=== PATIENT | male | born 1960 | race Caucasian/White ===

== ENCOUNTER 2024-11-19 06:22 | Day surgery (SDC) | payer BC, SELFPAY | END 2024-11-19 14:51 | disposition home or self-care (01) | LOC: GI 06:22 | PROVIDERS: ATTENDING PHYSICIAN Internal Medicine Gastroenterology | DX: Z12.11 Encounter for screening for malignant neoplasm of colon (principal); D12.2 Benign neoplasm of ascending colon; D12.3 Benign neoplasm of transverse colon; D12.5 Benign neoplasm of sigmoid colon; K57.30 Diverticulosis of large intestine without perforation or abscess without bleeding; K62.1 Rectal polyp; Z86.0101 Personal history of adenomatous and serrated colon polyps | CPT/HCPCS: 45385; 45380; 88305 ==

== ENCOUNTER 2025-02-25 12:29 | Inpatient (IN) | payer BC, SELFPAY ==
[2025-02-25] VITALS (10 sets, daily range): BP systolic 118–189; BP diastolic 68–104; BMI 36.8; BMI 36.0
--- NOTE | 2025-02-25 09:26 | ED.GENMED ---
History of Present Illness
General
Chief Complaint: Dizziness
Source: patient
Exam Limitations: none
Time Seen by Provider: 02/25/25 09:14
Nursing documentation reviewed up to this point in time: agreed with
History of Present Illness
History of Present Illness:
Note:
CHIEF COMPLAINT(S)
Light-headedness, sensation of the heart racing.
HISTORY OF PRESENT ILLNESS
The patient is a 64-year-old male who presents with a complaint of light-headedness and a sensation of his heart racing. The patient noticed these sensations yesterday morning when he felt his heart racing. He has not experienced any similar heart
rhythm issues in the past. Upon examination, the patient was found to be in atrial flutter. He is currently receiving a calcium channel eagle to manage his heart rate. The plan includes monitoring heart rhythm and conducting further diagnostics
such as an echocardiogram to assess heart health and check for potential blood clots due to the inability of the atria to pump effectively. The patient reports no history of heart rhythm problems, denies current chest pain, but describes the
sensation of the heart racing as feeling as though its out of rhythm.
PAST MEDICAL AND SURIGICAL HISTORY
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
CHRONIC MEDICAL CONDITIONS SIGNIFICANTLY AFFECTING CARE
- Hypertension
SOCIAL HISTORY
The patient reports consuming alcohol on weekends. He denies smoking and any illicit drug use.
MEDICATIONS
- Levothyroxine (Synthroid) for hypothyroidism, which has required dose adjustments approximately every three months to manage thyroid levels.
PHYSICAL EXAM
General: Alert, no acute distress.
Skin: Warm, dry.
Head: Normocephalic, atraumatic.
Neck: Supple, trachea midline.
Eye Ears, nose, mouth and throat: Oral mucosa moist.
Cardiovascular: Heart rhythm irregular, tachycardia
Respiratory: Respirations are non-labored.
Gastrointestinal: Abdomen nondistended.
Back: Normal range of motion, normal alignment.
Musculoskeletal: Normal range of motion, normal strength.
Neurological: Alert and oriented to person, place, time, and situation. No focal neurological deficit observed.
Psychiatric: Cooperative, appropriate mood & affect.
PLAN
- Continue monitoring on a calcium channel eagle with an infusion drip to attempt rate control.
- Laboratory tests will be conducted.
- Perform a chest X-ray to assess cardiac and pulmonary structures.
- Conduct an echocardiogram to evaluate cardiac function and rule out blood clots in the atrial appendage.
- Initiate anticoagulant therapy to prevent thromboembolic events.
- Arrange for follow-up with cardiology for long-term management of atrial flutter and potential conversion to sinus rhythm.
- The patient was advised on lifestyle factors including alcohol moderation as a contributory factor for atrial flutter.
DIFFERENTIAL DIAGNOSIS
The Differential Diagnosis includes, in no particular order and is not limited to:
1. Atrial Flutter
2. Atrial Fibrillation
3. Sinus Tachycardia
4. Paroxysmal Supraventricular Tachycardia
5. Ventricular Tachycardia
6. Hyperthyroidism-related Arrhythmia
7. Anxiety or Panic Disorder
8. Electrolyte Imbalance
9. Myocardial Infarction
10. Pulmonary Embolism
EKG
My independent EKG interpretation is:
- Time of EK:51 a.m.
- Rhythm: Atrial flutter with 2:1 AV conduction
- Heart Rate: 129 bpm
- Abnormalities: Non-specific ST abnormality
- QRS Complex: Normal
- Fulton: Left axis deviation
Disposition:
SUMMARY OF ENCOUNTER
The patient, a 64-year-old male, presented to the emergency department with light-headedness and a sensation of the heart racing, which started the previous morning. On examination, the patient was found to be in atrial flutter with a heart rate of
129 bpm and an irregular rhythm. An EKG was performed with findings of atrial flutter with 2:1 AV conduction and non-specific ST abnormality. The patient was started on a diltiazem drip for rate control, which led to mild improvement in blood
pressure, but the heart rate remained largely unchanged. A chest X-ray was conducted, showing no acute findings. Given the complexity and potential risks associated with the patient�s condition and the need for further evaluation, including a
potential echocardiogram and cardioversion, admission was deemed necessary.
DISPOSITION
Admit to hospitalist for further evaluation and management.
ASSESSMENT
New onset of rapid atrial flutter.
MANAGEMENT OF THE PATIENTS CARE WAS DISCUSSED WITH
Message sent to Dr. Pardo, deputy register of deeds, to evaluate the patient for potential echocardiogram and cardioversion.
PLAN
- Admit to hospitalist for further evaluation and management. - Cardiology consultation for likely need for echocardiogram and cardioversion. - Continue monitoring on diltiazem drip and reassess heart rate control.
INDEPENDENT REVIEW OF LABS AND INTERPRETATION OF TESTS
My independent interpretation of the chest X-ray is no acute findings. My independent EKG interpretation is atrial flutter with 2:1 AV conduction, heart rate 129 bpm, and non-specific ST abnormality. The echocardiogram is normal.
MEDICATION RECONCILIATION
Diltiazem drip administered for rate control of atrial flutter.
MEDICAL DECISION MAKING
- Number and Complexity of Problems Addressed: Chronic conditions affecting care include hypertension and hypothyroidism. Differential Diagnosis includes atrial flutter, atrial fibrillation, sinus tachycardia, paroxysmal supraventricular
tachycardia, ventricular tachycardia, hyperthyroidism-related arrhythmia, anxiety or panic disorder, electrolyte imbalance, myocardial infarction, and pulmonary embolism.
- Data:
Category 1: My independent interpretation of the EKG and chest x-ray.
Category 3: Discussion of management with Dr. Pardo, deputy register of deeds, regarding potential echocardiogram and cardioversion.
- Risk: Consideration of Admission/Observation was necessary given the complexity and risk of the patients presenting complaint, exam findings, and underlying comorbidities.
DIAGNOSIS
Atrial flutter, unspecified (ICD-10: I48.92). Hypertension (ICD-10: I10). Hypothyroidism, unspecified (ICD-10: E03.9).
Past History
Past History
ED Past Medical History: HTN, Hypercholesterolemia, Hypothyroidism and Other (Hernia)
ED Past Surgical History: None
Social History
Tobacco: Former smoker
Alcohol: Occasional
Personal:
Living: with family
Phy Exam
Physical Exam
Physical Exam:
.
Course
Orders/Labs/Results
Orders:
Orders
02/25/25 08:49
Electrocardiogram (*1) Urgent
Reason for Study: Tachycardia
EKG- Treatment ONCE
02/25/25 09:32
Adenosine [Adenocard] 6 mg .ROUTE .STK-MED ONE
Diltiazem HCl [Cardizem] 25 mg .ROUTE .STK-MED ONE
02/25/25 09:39
Diltiazem 125 mg/125 ml Nss [Cardizem] 125 mg in 125 ml .ROUTE .STK-MED
02/25/25 09:44
Diltiazem 125 mg/125 ml Nss [Cardizem] 125 mg in 125 ml IV NOW
Initial dose in mg/hr, then titrate:: 10
Titrate to keep:: Heart rate 80-100 bpm
Titrate by mg/hr:: 5 mg/hr
Frequency of titrations (minutes):: 15
Maximum dose in mg/hr:: 15
Diltiazem HCl [Cardizem] 10 mg IV NOW STA
02/25/25 09:47
Complete Blood Count/With Diff Urgent
Comprehensive Metabolic Panel Urgent
Glycohemoglobin (HgbA1c) Urgent
Magnesium Urgent
PTT Urgent
Prothrombin Time Urgent
TSH Reflex To Free T4 Urgent
Comment: ADD
02/25/25 Lunch
Cholesterol Lowering
At Your Request: Full Participation
02/25/25 10:04
CR Chest Portable - 1 View Urgent
Comment:
Reason For Exam: tachycardia, short of breath
Reason Study Needs to be Portable: Patient Unstable
02/25/25 11:03
Heparin 4,000 units IV NOW STA
Pharmacy Request to Place See Dose Instructions PO NOW STA
Discontinue all Active Warfarin orders?: Yes
Nursing to Place Non Medication Order As Directed
Physician Order: PTT 6 hours after initial start of Heparin infusion
Above order entered?: Yes
02/25/25 11:07
Add On- LAB Routine
Tests Added?: TSH reflex to T4, Hgba1c
02/25/25 11:15
Heparin 02030 Units/250 ml 25,000 units in 250 ml IV PER PROTOCOL
Weight to be used for heparin protocol in kilograms (kg):: 130
Protocol:: Cardiac Tx/Acute Coronary
PTT Goal Range to be used:: PTT 73 to 111 seconds
Order type:: Initial
INITIAL Infusion Dose (UNITS/KG/hr) & then follow protocol:: 12 units/kg/hr
Infusion Dose in UNITS/hr & then follow protocol (UNITS/hr):: 1,000
INFUSION RATE in mL/hr & then follow protocol (mL/hr):: 10
PTT less than or equal to 64 seconds:: Increase rate by 200 units/hr (+ 2 mL/hr)
PTT 64.1 to 72.9 seconds:: Increase rate by 100 units/hr (+ 1 mL/hr)
PTT 73 to 111 seconds:: Target Range. No change in rate.
PTT 111.1 to 130.9 seconds:: Decrease rate by 100 units/hr (- 1 mL/hr)
PTT 131 to 199.9 seconds:: HOLD for 1 hr. Then decrease rate by 200 units/hr (- 2 mL/hr)
PTT greater than or equal to 200 seconds:: HOLD for 2 hrs & Notify Provider. Then decrease by 200 units/hr (-
2 mL/hr)
Lab follow-up:: Each change, PTT q6h until 2 consecutive are therapeutic. Then PTT
daily.
02/25/25 12:[address] See Dose Instructions IV DIRECTED
02/25/25 12:10
Admit/Transfer Patient As Directed
Co-Sign Provider:
Level of Care: Inpatient admission
Assign to:: Telemetry
Physician / Group: Chantal
Diagnosis: Rapid Atrial flutter
Reason for Telemetry: Arrhythmia
Date to Stop Telemetry: 02/28/25
Time to Stop Telemetry: 11:00
Reason for Hospitalization: Rate control, cardio consult
Expected length of stay greater than two midnights?: Yes
ELOS- Estimated Length of Stay in days: 3
I certify the patient meets the requirements for IP care: Yes
PRN Pain Medication Management As Directed
May give lesser potent ordered pain med per pt: Yes
preference::
Protocol:: Medication orders for pain may be administered in a
manner that supports deferring to patient preference
when the pt is:
- Requesting an ordered lesser potent pain medication.
Least to most potent pain medications are defined
as: acetaminophen < NSAID < tramadol < opioids
(morphine, oxycodone, hydromorphone).
- Requesting a lesser dose of the same medication IF
ORDERED.
- Requesting a less intrusive route of administration
if both routes are prescribed by the provider (PO <
IV).
02/25/25 12:12
Code Status As Directed
Resuscitation Status: Full Code
02/25/25 12:23
Echo 2D MMode Color/Doppler [Echo 2D MMode Color/Doppler] Routine
Reason for Study: atrial flutter
CARDIOLOGY CONSULT Routine
Consulting Provider: Mello Gu
Was physician already notified: Yes
02/25/25 15:34
Acetaminophen [Tylenol] 650 mg PO Q6HPRN PRN
02/25/25 15:34
Activity As Directed
Activity Level: Out of Bed-Early Mobility
02/25/25 17:35
PTT Urgent
02/26/25 06:00
Levothyroxine [Synthroid] 200 mcg PO DAILY@0600
Levothyroxine [Synthroid] 25 mcg PO DAILY@0600
02/26/25 08:00
Atorvastatin [Lipitor] 20 mg PO DAILY
Abnormal Lab Results
02/25/25
09:47
MPV 11.2 H fL
(7.4-10.4)
Abs Immat Gran (auto) 0.1 H 10^3/uL
(0-0.05)
Absolute Monos (auto) 0.9 H 10^3/uL
(0.1-0.6)
Immature Gran % 0.7 H %
(0-0.5)
Chloride 109 H mmol/L
(98-107)
Glucose 123 H mg/dl
(70-99)
02/25/25 09:47
02/25/25 09:47
Vital Signs
Initial and Last Documented VS:
Initial Vital Signs
Temp Pulse Resp BP Pulse Ox
98.5 F 64 18 189/103 97
02/25/25 08:46 02/25/25 08:46 02/25/25 08:46 02/25/25 08:46 02/25/25 08:46
Last Documented Vital Signs
Temp Pulse Resp BP Pulse Ox
98.8 F 60 18 121/79 95
02/25/25 15:50 02/25/25 15:50 02/25/25 15:50 02/25/25 15:50 02/25/25 15:50
*Pulse Oximetry
SaO2: 97
Oxygen Mode of Delivery: Room air
Patient hypoxic: no
*Critical Care Note
Total Time (30-74mins, 75-104mins- exclusive of procedures): 30
comment:
Critical care statement: A total of 30 minutes of critical care time was provided for this patient. This includes management of unstable vital signs, evaluation of the patient at bedside, reviewing the patient's pertinent medical records, discussion
with consultants, review of old EKGs and review of pertinent medical records. This time with separate from time utilized to perform the aforementioned documented procedures
ED Attending Note
-
Portions of this chart may have been created with voice recognition software.� Occasional wrong word or��sound alike� substitutions may have occurred due to the inherent limitations of voice recognition software.
Discharge Plan
Departure
Patient Disposition: Admit
Date of Disposition: 02/25/25
Time of Disposition: 10:43
Admit to: IVU
Presentation/result/management discussed w/ accepting MD/DO: Hospitalist
Patient with high blood pressure during this ER visit?: Yes
Condition: Fair
Discharge Problem:
Atrial flutter with rapid ventricular response
Interventions
Interventions:
*Risk Screen - Suicide Last Done: 02/25/25 08:46
*General Assessment Last Done: 02/25/25 08:46
*Neglect/Abuse Screening Last Done: 02/25/25 08:46
*ED COVID-19 Vaccine History Last Done: 02/25/25 09:33
*ED Influenza Vaccine History Last Done: 02/25/25 09:33
*Nursing Disposition Last Done: 02/25/25 15:45
ED- Cardiac Assessment Last Done: 02/25/25 09:33
ED- Neurological Assessment Last Done: 02/25/25 09:33
ED- Pulmonary Assessment Last Done: 02/25/25 09:33
Discharge Date and Time
Discharge Date/Time: 02/25/25 15:46
[2025-02-25] MEDS: CARDIZEM 125 IV ×2 (09:47→17:50)
[2025-02-25] MEDS: CARDIZEM 10 MG IV (09:48)
[2025-02-25 09:56] LABS: Hematocrit 47.3 % (39.0-52.0); Hemoglobin 16.5 g/dL (13.0-18.0); Mean Corp Hgb Conc. 34.9 g/dL (33.0-37.0); Mean Corpuscular Volume 88.4 fL (80.0-94.0); Nucleated Red Blood Cells % 0 % (-); Platelet Count 259 10^3/uL (130-400); Red Cell Dist. Width 12.2 % (11.5-14.5)
[2025-02-25 10:11] LABS: INR 0.92; PT 12.7 Sec (11.4-14.6)
[2025-02-25 10:12] LABS: APTT 31.7 Sec (23.4-35.0)
[2025-02-25 10:20] LABS: ALT (SGPT) 34 U/L (0-50); AST (SGOT) 23 U/L (17-59); Albumin 4.6 g/dl (3.5-5.0); Alkaline Phosphatase 67 U/L (38-126); Blood Urea Nitrogen 15 mg/dl (9-20); Calcium 9.7 mg/dl (8.4-10.2); Carbon Dioxide 24 mmol/L (22-30); Chloride 109 mmol/L (98-107); Estimated Creatinine Clearance > 125 ml/min; Glucose 123 mg/dl (70-99); Magnesium 2.2 mg/dl (1.6-2.3); Potassium 4.7 mmol/L (3.5-5.1); Sodium 138 mmol/L (135-145); Total Protein 7.3 g/dl (6.3-8.2); eGFR > 60.00
[2025-02-25] MEDS: HEPARIN 25000 UNITS/250 ML IV (11:32)
[2025-02-25] MEDS: HEPARIN 4000 UNITS IV (11:32)
--- NOTE | 2025-02-25 12:14 | HPS.HSE ---
Family Physician
-
Family Physician: Zacarias Singletary
Chief Complaint
-
Lightheaded
History of Present Illness
64 yo male here complaining of lightheadedness and palpiations, started 2 days ago. No history of the same.
Some FULTON.
Medical History
Past Medical History
Past Medical History: Reports Other
Additional Past Medical History:
Hypothyroidism
Essential HTN
Hyperlipidemia
Past Surgical History: Reports None
Social History
Tobacco: Non-smoker
Alcohol: Occasional
Drug: None
Personal:
Living: With Family
Employment: Employed
Family History
Family History: Not pertinent
Allergies / Home Medications
Allergies reflects when Allergies were last updated in [facility].
Home Medications with original date entered in [facility]
Allergy/Medication List:
Allergies
Allergy/AdvReac Type Severity Reaction Status Date / Time
No Known Allergies Allergy Verified 02/25/25 08:46
Home Medications
aspirin 81 mg tablet,delayed release 162 mg PO DAILYPRN PRN CHEST PAINS 02/25/25
atorvastatin 20 mg tablet (Lipitor) 20 mg PO DAILY High Cholesterol 02/25/25
levothyroxine 200 mcg tablet (Synthroid) 200 mcg PO DAILY Thyroid 02/25/25
levothyroxine 25 mcg tablet (Synthroid) 25 mcg PO DAILY Thyroid 02/25/25
naproxen sodium 220 mg tablet (Aleve) 220 mg PO BIDPRN PRN MILD PAIN 02/25/25
valsartan 160 mg-hydrochlorothiazide 12.5 mg tablet 1 tab PO DAILY Blood Pressure 02/25/25
Review of Systems
-
History Source: Patient
A 12 point ROS was completed and negative except as noted: Yes
Physical Exam
Vital Signs
Vital Signs
Temp Pulse Resp BP Pulse Ox
98.5 F 141 22 122/88 96
02/25/25 08:46 02/25/25 11:45 02/25/25 11:45 02/25/25 11:00 02/25/25 11:15
Physical Exam
General: Well Developed, Well Nourished, No Apparent Distress and Comfortable
HEENT: NormoCephalic, Anicteric and Moist mucous membranes
Respiratory: Clear
Cardiac: S1/S2 and Regular Rhythm
GI: Soft, Non Tender and Non Distended
Genito-urinary: Deferred by me
Musculoskeletal: No Clubbing, No Cyanosis and No Edema
Skin: Warm and Dry
Neuro: AO x 3
Hematologic/Lymphatic: No Lymphadenopathy
Psych: Calm
Laboratory Results
-
02/25/25 09:47
02/25/25 09:47
Laboratory Results
PT 12.7 Sec (11.4-14.6) 02/25/25 09:47
INR 0.92 02/25/25 09:47
APTT 31.7 Sec (23.4-35.0) 02/25/25 09:47
Total Bilirubin 0.9 mg/dl (0.2-1.3) 02/25/25 09:47
AST 23 U/L (17-59) 02/25/25 09:47
ALT 34 U/L (0-50) 02/25/25 09:47
Alkaline Phosphatase 67 U/L (38-126) 02/25/25 09:47
Impression/Plan
-
Rapid Atrial Flutter - new onset. Admit to IVU. Consult cardiology.
Cardizem drip, heparin drip initiated in the ER.
Check echocardiogram.
Hypothyroidism -check TSH. Continue levothyroxine.
Hyperlipidemia -atorvastatin.
Essential hypertension -stable.
Obesity due to excess calories
Full code
updated at the bedside.
--- NOTE | 2025-02-25 13:28 | CON.CAR ---
Addendum entered and electronically signed by Mello Gu MD 02/25/25 18:46:
64-year-old man with 2-3 days of vague palpitations associated with lightheadedness and dyspnea on exertion. Tachycardia noted on smart watch.
PMH:hypertension, hyperlipidemia and hypothyroidism
Meds on admission: Aspirin 162 mg as needed, atorvastatin 20 mg a day, levothyroxine 225 mcg daily, valsartan/HCT
SH: Occasional alcohol, no tobacco, , [employer] at [employer]
Rest of history as below
136/70, heart rate 140, respiratory rate 18
Weight is 127 kg, head neck exam unremarkable, lungs are clear, tachycardic and regular rhythm, no murmurs, abdomen obese extremities with 1+ to 2+ edema
Telemetry: A flutter 2-1, occasional heart block revealing flutter waves
ECG a flutter 2-1, left axis deviation, nonspecific ST and T changes
White count 10.2, hemoglobin 16.5, BUN and creatinine 15 and 0.8, potassium 4.7
Impression:
New onset atrial flutter
Hypertension
Hyperlipidemia
Hypothyroidism
Obesity
Other diagnoses, findings, recommendations as below. Reviewed in detail and agree, unless otherwise specified.
Plan:
He presents with atrial flutter that is probably 2 or 3 days in duration. Rate in atrial flutter will likely be difficult to control, so jain of sinus rhythm is probably best undertaken promptly. Given possible duration of atrial flutter,
probably best to proceed with transesophageal echo prior to cardioversion.
Discussed with the patient and .
Short-term rate control with IV diltiazem, start Eliquis, add metoprolol as needed for rate control and proceed with transesophageal echo and cardioversion in a.m.
Sleep study may be advised, can be arranged as outpatient
Likely should be considered for GLP-1 agonist.
At follow-up, we can determine whether Eliquis should be continued long-term ([id number] score currently 1, but seem to be 2), and whether intervention such as CTI isolation is warranted.
Original Note:
Consultation
Consultation Request
Date/Time Consultation Requested: 02/25/2025, 1123
Date/Time Consultation Performed: 02/25/2025, 1329
Requesting Provider: Dr. Cornejo
Performing Provider: MARCELL Mims for Dr. Orozco
Reason for Consultation: aflutter
Medical History
-
Chief Complaint: Palpitations, dizziness, shortness of breath
History of Present Illness:
64-year-old male with history of hypertension, hyperlipidemia, hypothyroidism presents to [facility] ED with 2-day history of palpitations and lightheadedness.
On 02/23/25 he walked his dog for 4 miles and felt a little lightheaded. He felt the same way yesterday after a 4 mile walk. Today he took a shower and went to take his dog out but felt presyncopal with palpitations and came to the ED.
EKG showed atrial flutter with 2-1 conduction.
Chest x-ray with mild atelectasis.
Labs: TSH 1.47, hemoglobin 16.5, BUN/creatinine 15/0.8, NA 138, K4.7
He was started on Cardizem drip and heparin drip.
Heart rates remain elevated in the 130s-140s despite Cardizem drip at 15.
Cardiology consulted for management of atrial flutter
No known history of sleep apnea but admits to snoring. denies noting apneic episodes.
Occasional alcohol, 2 beers on Tuesday night, 2 beers yesterday.
Past medical history:
Hypertension
Hyperlipidemia
Hypothyroidism
Obesity
Past Medical History
Past Medical History: Other (as above)
Past Surgical History: Other
Social History
Tobacco: Non-Smoker
Alcohol: Occasional
Drug: None
Personal:
Living: With Family
Family History
Family History: Reviewed & Not Pertinent
Allergies / Home Medications
Allergy/AdvReac Type Severity Reaction Status Date / Time
No Known Allergies Allergy Verified 02/25/25 08:46
�Medication �Instructions �Recorded �Confirmed �Type
aspirin 81 mg tablet,delayed 162 mg PO DAILYPRN PRN CHEST PAINS 02/25/25 02/25/25 History
release
atorvastatin 20 mg tablet (Lipitor) 20 mg PO DAILY High Cholesterol 02/25/25 02/25/25 History
levothyroxine 200 mcg tablet 200 mcg PO DAILY Thyroid 02/25/25 02/25/25 History
(Synthroid)
levothyroxine 25 mcg tablet 25 mcg PO DAILY Thyroid 02/25/25 02/25/25 History
(Synthroid)
naproxen sodium 220 mg tablet 220 mg PO BIDPRN PRN MILD PAIN 02/25/25 02/25/25 History
(Aleve)
valsartan 160 1 tab PO DAILY Blood Pressure 02/25/25 02/25/25 History
mg-hydrochlorothiazide 12.5 mg
tablet
Review of Systems
-
History Source: Patient
All other systems: Negative unless noted
Physical Exam
Vital Signs
Temp Pulse Resp BP Pulse Ox
98.5 F 144 18 126/83 96
02/25/25 08:46 02/25/25 13:15 02/25/25 13:15 02/25/25 13:00 02/25/25 11:15
Lab Results
02/25/25 09:47
02/25/25 09:47
GEN: No distress, awake, Ox3
HEENT: supple, anicteric, mmm
LUNGS: CTA, no wheezes/rales
CV: Tachy, regular reg, S1/S2,no murmur
ABD: soft, BS+, NT/ND
EXT: No edema
NEURO: Gross non-focal
SKIN: No rash
Impression / Plan
-
PCP: Dr. Zacarias Singletary
Primary machining manager: None
Previous cardiovascular diagnostic studies:: None
Plan:
64-year-old male with hypertension, hyperlipidemia, hypothyroidism, overweight presents with 2-day history of lightheadedness with exertion and today with palpitations and presyncope, found to be in atrial flutter with 2-1 block which is a new
diagnosis.
Atrial flutter:
-Cont anticoagulation, can transition from heparin to oral anticoagulant
-Start Eliquis 5 mg twice daily- I ordered
-Will start metoprolol tartrate 25 mg twice daily for additional rate control
- Check echo given new diagnosis
-JUAN/cardioversion in a.m.
-NPO after MN
-Consider sleep study as outpatient
-TSH 1.47
- Weight loss advised
-Continue valsartan HCT for history of hypertension
Data Reviewed
-
EKG: Tracing Personally Visualized and interpreted
Labs: Labs Reviewed by me
[2025-02-25 14:03] LABS: Glycohemoglobin (HgbA1c) 5.9 % (4.0-5.9)
--- NOTE | 2025-02-25 15:13 | EDCM ---
CM reviewed chart and met with pt bedside in ED. Lives with his in 2 story home, [address] from [facility].
Independent in ADLs, personal care and ambulation at baseline. No assistive device, no DME in home. 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
Confirms prescription coverage.
No hx VN or SNF
PCP: Zacarias Singletary
Pharmacy: [facility]
Anticipate discharge home, CM will continue to follow for all discharge planning needs.
--- NOTE | 2025-02-25 16:10 | PTCARENOTE ---
pt admitted to room 415-02- ambulated from stretcher to bed. AAOx3. denies pain. Aflutter on telemetry heart rate low 100s. pt denies SOB or chest pain. pt oriented to room and unit.
[2025-02-25] MEDS: ELIQUIS 5 MG PO (18:14)
[2025-02-25] MEDS: LOPRESSOR 12.5 MG PO ×2 (18:14→23:10)
[2025-02-26] MEDS: CARDIZEM 125 IV (01:45)
[2025-02-26 02:23] VITALS: BP 101/58
[2025-02-26 02:40] VITALS: BP 110/66
[2025-02-26 02:55] VITALS: BP 119/66
[2025-02-26] MEDS: LOPRESSOR PO (05:21)
[2025-02-26] MEDS: SYNTHROID 200 MCG PO (06:24)
[2025-02-26] MEDS: SYNTHROID 25 MCG PO (06:24)
--- NOTE | 2025-02-26 06:59 | PTCARENOTE ---
Patient converted from aflutter to afib to NSR by 0. Patient sleeping. patient remained on cardizem gtt at 15 mg/hr. Notified COMPRESSED GAS EQUIPMENT MECHANIC that around [id number] patient began to be bradycardic 55-65. COMPRESSED GAS EQUIPMENT MECHANIC adjusted order from 15 mg to 2.5 mg. Remains on tele,
BP stable.
[2025-02-26 08:02] VITALS: BP 124/74
--- NOTE | 2025-02-26 08:24 | CARDSERVLU ---
Echocardiogram with [facility] completed after protocol screening completed. Allergies verified.
Patent IV site: _Left antecubital 20 G PC site clear____
IV site flushed with 0.9% NaCl pre and post administration.
Diluted bolus method utilized to enhance visualization of ventricular pena.
Total volume given: __3__ mL
Patient tolerated all procedures well without complications.
[2025-02-26] MEDS: ELIQUIS 5 MG PO (08:48)
[2025-02-26] MEDS: LIPITOR 20 MG PO (08:48)
[2025-02-26 09:53] LABS: Hepatitis C Antibody Negative (Negative)
--- NOTE | 2025-02-26 10:59 | W.PN.HOSP.TC ---
Today's Communication/Plan
-
Follow-up echocardiogram
Assessment / Plan
Assessment / Plan
Gen-AAOx3, NAD
HEENT-NC, AT, anicteric, clear oral mm
Neck-supple
CV-reg, no M, +S1/S2
Lungs-clear B/L
Abd-soft, NT, ND
Ext-no edema
Musculoskeletal-no cyanosis, clubbing
Skin-warm and dry
Neuro-grossly non-focal
Psych-calm, cooperative
Rapid Atrial Flutter - new onset. Spontaneously converted to sinus rhythm overnight. Twelve-lead EKG from this morning reviewed, sinus rhythm, left axis deviation.
Continue Eliquis. Continue metoprolol, wean off Cardizem IV.
Follow-up echocardiogram results. Cardiology following.
Hypothyroidism -TSH 1.4. Continue levothyroxine.
Hyperlipidemia -atorvastatin.
Essential hypertension -stable.
Obesity due to excess calories
Full code
Anticipated Discharge: Within 24 hours
Subjective/Interval History
-
Date of Service: February 26, 2025
Patient seen and examined. Feels fine. No complaints.
Objective Data
-
Vital Signs:
Vital Signs
Temp Pulse Resp BP Pulse Ox
97.6 F 69 16 124/74 94
02/26/25 08:02 02/26/25 08:02 02/26/25 08:02 02/26/25 08:02 02/26/25 08:02
I&O
02/25/25 02/26/25 02/27/25
06:59 06:59 06:59
Intake Total 480 / 480
Balance 480 / 480
Review of Systems
-
History Source: Patient
All other systems: Reviewed and negative
[2025-02-26 11:03] VITALS: BP 148/82
[2025-02-26] MEDS: LOPRESSOR 12.5 MG PO (12:14)
--- NOTE | 2025-02-26 15:06 | W.PN.CARDCBS ---
Addendum entered and electronically signed by Mello Gu MD 02/26/25 17:15:
64-year-old man with 2-3 days of vague palpitations associated with lightheadedness and dyspnea on exertion. Tachycardia noted on smart watch.
PMH:hypertension, hyperlipidemia and hypothyroidism
Meds on admission: Aspirin 162 mg as needed, atorvastatin 20 mg a day, levothyroxine 225 mcg daily, valsartan/HCT
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
Current medications: Reviewed, apixaban 5 mg twice daily, atorvastatin 40 mg a day, levothyroxine 225 mcg daily, metoprolol tartrate 25 twice daily
Rest of history as below
Patient spontaneously reverted to sinus rhythm late yesterday evening, now feels well
134/73, pulse 67, respiratory rate 18, afebrile, saturations 96%, head neck exam unremarkable lungs are clear regular rate and rhythm without murmurs abdomen obese extremities without much edema
chest x-ray possibly mild vascular congestion, EKG today normal sinus rhythm, left axis deviation
ECHO: Normal normal RV mild LVH, normal mitral and aortic valve, normal right heart
Impression:
Paroxysmal atrial flutter with spontaneous conversion to normal rhythm
Hypertension
Hyperlipidemia
Hypothyroidism
Obesity
Other diagnoses as below. Findings, assessments, recommendations reviewed in detail and agree, unless otherwise specified.
Plan:
Overall stable and now back in sinus rhythm
Will discharge on Eliquis and beta-eagle, continue atorvastatin, levothyroxine and valsartan HCT
Stop aspirin and limit naproxen
Okay for discharge from our standpoint. We will arrange for cardiac follow-up. Consider outpatient sleep study.
Emphasis placed on weight loss and healthy lifestyle efforts.
Addendum entered and electronically signed by Delilah Darden PA-C 02/26/25 16:52:
correction to below: patient SPONTANEOUSLY converted to SR, DID NOT require JUAN/CV as listed below. rest of plan as noted below.
Original Note:
Today's Communication / Plan
-
Status post successful JUAN/cardioversion
echo pending
Lopressor 25 mg twice daily
Eliquis 5 mg twice daily
will arrange outpatient cardiac follow-up. Consider EP evaluation for a flutter ablation
ok for DC from cardiac standpoint
Impression / Plan
-
PCP: Dr. Zacarias Singletary
Primary certified ophthalmic technician: None
Previous cardiovascular diagnostic studies:: None
Plan:
Presentation with palpitations, lightheadedness
Typical atrial flutter status post successful JUAN/cardioversion 02/26/2025
Hyperlipidemia
Hypertension
Hypothyroidism
Echo 02/26/2025: Pending
Plan:
- Patient presented with palpitations and lightheadedness and found to be in new typical atrial flutter with RVR
- Status post successful JUAN/cardioversion 02/26/2025. Remains in sinus rhythm on review of telemetry postprocedure
- Eliquis 5 mg twice daily started this admission. Given low [id number], could reassess need for continued long-term anticoagulation in outpatient setting
- Will transition Lopressor to 25 mg twice daily
- echo pending
- consider for sleep study as outpatient
- TSH within normal limits
- Weight loss has been advised
- Continue outpatient valsartan/HCTZ
- Will arrange outpatient cardiac follow-up. Consider EP evaluation for a flutter ablation
- Okay for discharge to home today from cardiac standpoint
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
Subjective
Date of Service: February 26, 2025
Eager for discharge
Objective
Labs:
02/25/25 09:47
02/25/25 09:47
Labs
Hgb 16.5 g/dL (13.0-18.0) 02/25/25 09:47
Hct 47.3 % (39.0-52.0) 02/25/25 09:47
Plt Count 259 10^3/uL (130-400) 02/25/25 09:47
PT 12.7 Sec (11.4-14.6) 02/25/25 09:47
INR 0.92 02/25/25 09:47
APTT Cancelled 02/25/25 17:35
Sodium 138 mmol/L (135-145) 02/25/25 09:47
Potassium 4.7 mmol/L (3.5-5.1) 02/25/25 09:47
BUN 15 mg/dl (9-20) 02/25/25 09:47
Creatinine 0.8 mg/dL (0.7-1.3) 02/25/25 09:47
Glucose 123 mg/dl (70-99) H 02/25/25 09:47
Vital Signs and I&O:
Vital Signs
Temp Pulse Resp BP Pulse Ox
98.4 F 66 14 148/82 95
02/26/25 11:03 02/26/25 11:03 02/26/25 11:03 02/26/25 11:03 02/26/25 11:03
Vital Signs
Temp Pulse Resp BP Pulse Ox
98.4 F 66 14 148/82 95
02/26/25 11:03 02/26/25 11:03 02/26/25 11:03 02/26/25 11:03 02/26/25 11:03
Intake & Output
02/24/25 02/25/25 02/26/25 02/27/25
07:59 07:59 07:59 07:59
Intake Total 480 / 480
Balance 480 / 480
Physical Exam
Physical Exam
GEN: No distress, awake, alert, oriented x3. Obese
HEENT: supple, anicteric, mmm, EOMI
LUNGS: CTA bilaterally, no wheezes/rales
CV: Reg, S1/S2, no murmur
ABD: soft, BS+, NT/ND
EXT: No cyanosis, clubbing, edema
NEURO: Gross non-focal
SKIN: Warm, pink, dry. No rash
[2025-02-26 16:00] VITALS: BP 134/73
--- NOTE | 2025-02-26 16:54 | W.DS.TRANS ---
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
-
Discharge Instructions:
Discharge Diagnosis/Procedures Atrial flutter
Diet Low Cholesterol,Low Fat
Activity As tolerated
Driving Restrictions No driving for 24 hours
Bathing Restrictions None
Instructions:
Stand-Alone Forms:
Changes to Home Medications: No
Discharge Medications:
DC Medications w/original date entered in [employer]
atorvastatin 20 mg tablet (Lipitor) 20 mg PO DAILY High Cholesterol 02/25/25
levothyroxine 200 mcg tablet (Synthroid) 200 mcg PO DAILY Thyroid 02/25/25
levothyroxine 25 mcg tablet (Synthroid) 25 mcg PO DAILY Thyroid 02/25/25
valsartan 160 mg-hydrochlorothiazide 12.5 mg tablet 1 tab PO DAILY Blood Pressure 02/25/25
apixaban 5 mg tablet (Eliquis) 5 mg PO BID #60 tabs 02/26/25
metoprolol tartrate 25 mg tablet 25 mg PO BID #60 tabs 02/26/25
Home Medication Changes
Pending Results: No
== END 2025-02-26 17:17 | disposition home or self-care (01) | DRG 309 ==
LOC: 4 WEST ACU 12:29
PROVIDERS: ADMITTING PHYSICIAN Hospitalist; EMERGENCY PHYSICIAN Emergency Medicine; FAMILY PHYSICIAN Family Medicine; OTHER PHYSICIAN Internal Medicine Cardiovascular Disease
PROC: B24BZZ4 Ultrasonography of Heart with Aorta, Transesophageal (ICD-10-PCS; 2025-02-26)
PROC: 5A2204Z Restoration of Cardiac Rhythm, Single (ICD-10-PCS; 2025-02-26)
DX: I48.92 Unspecified atrial flutter (principal); J98.11 Atelectasis; E03.9 Hypothyroidism, unspecified; E66.09 Other obesity due to excess calories; Z68.36 Body mass index [BMI] 36.0-36.9, adult; I10 Essential (primary) hypertension; Z79.899 Other long term (current) drug therapy; Z87.891 Personal history of nicotine dependence
CPT/HCPCS: 71045; 80053; 83036; 83735; 84443; 85025; 85610; 85730; 86803; 93005; 93306; 96374; 96375; 96376; 99291; J0153; Q9950